=== PATIENT | male | born 1960 | race Caucasian/White ===

== ENCOUNTER 2018-07-13 08:13 | Emergency (ER) | payer SELFPAY ==
[2018-07-13] MEDS ORDERED: KETOROLAC 30 MG/ML VIAL IVP ONE (08:30)
[2018-07-13] MEDS ORDERED: 0.9 % SODIUM CHLORIDE 1,000 ML BAG IV ONE (08:31)
[2018-07-13] MEDS ORDERED: HYDROMORPHONE HCL 2 MG/ML VIAL IVP ONE (08:43)
--- NOTE | 2018-07-13 08:49 | Emergency Department Record ---
History of Present Illness - General Chief complaint: ENT Stated complaint: SORE THROAT Time Seen by Provider: 07/13/18 08:25 Source: Patient, Family Mode of Arrival: Ambulatory Limitations: No limitations - History of Present Illness Initial comments: pt has had a cold for a week and a sore throat for 2 days. it has become more severe till he feels like his throat is closing. he has a cough and congestion w drainage. he was sweating after he took tylenol. MD complaint: Difficulty swallowing, Sore throat Onset/Timin -: Days(s) Location: Throat Severity: Moderate Severity scale (1-10): 5 Quality: Aching Consistency: Constant, Intermittent, Getting worse Improves with: None Worsens with: Eating, Swallowing Associated Symptoms: Pain with swallowing - Related Data Home Medications Medication Instructions Recorded Confirmed Last Taken No Home Med [NO HOME MEDS] 07/13/18 07/13/18 Unknown Allergies Allergy/AdvReac Type Severity Reaction Status Date / Time No Known Drug Allergies Allergy Verified 07/13/18 08:22 Travel Screening - Travel/Exposure Within Last 30 Days Have you traveled within the last 30 days?: No - Travel/Exposure Within Last Year Have you traveled outside the [place] in the last year?: No - Additonal Travel Details Have you been exposed to anyone with a communicable illness?: No - Travel Symptoms Symptom Screening: None Review of Systems Reviewed: No additional complaints except as noted below Constitutional: Reports: As per HPI. Denies: Chills, Fever, Malaise, Night sweats, Weakness, Weight change Eyes: Reports: As per HPI. Denies: Eye discharge, Eye pain, Photophobia, Vision change ENT: Reports: As per HPI, Congestion, Throat pain. Denies: Dental pain, Ear pain, Epistaxis, Hearing loss Respiratory: Reports: As per HPI, Cough. Denies: Dyspnea, Hemoptysis, Stridor, Wheezes Cardiovascular: Reports: As per HPI. Denies: Arrhythmia, Chest pain, Dyspnea on exertion, Edema, Murmurs, Orthopnea, Palpitations, Paroxysmal nocturnal dyspnea, Rheumatic Fever, Syncope Endocrine: Reports: As per HPI. Denies: Fatigue, Heat or cold intolerance, Polydipsia, Polyuria Gastrointestinal: Reports: As per HPI. Denies: Abdominal pain, Constipation, Diarrhea, Hematemesis, Hematochezia, Melena, Nausea, Vomiting Genitourinary: Reports: As per HPI. Denies: Dysuria, Frequency, Hematuria, Incontinence, Retention, Testicular pain, Testicular mass, Urgency Musculoskeletal: Reports: As per HPI. Denies: Arthralgia, Back pain, Gout, Joint swelling, Myalgia, Neck pain Skin: Reports: As per HPI. Denies: Bruising, Change in color, Change in hair/nails, Lesions, Pruritus, Rash Neurological: Reports: As per HPI. Denies: Abnormal gait, Confusion, Headache, Numbness, Paresthesias, Seizure, Tingling, Tremors, Vertigo, Weakness Psychiatric: Reports: As per HPI. Denies: Anxiety, Auditory hallucinations, Depression, Homicidal thoughts, Suicidal thoughts, Visual hallucinations Hematological/Lymphatic: Reports: As per HPI. Denies: Anemia, Blood Clots, Easy bleeding, Easy bruising, Swollen glands Past Medical History - SOCIAL HISTORY Smoking Status: Never smoker Alcohol Use: None Drug Use: None - RESPIRATORY Hx Respiratory Disorders: No - CARDIOVASCULAR Hx Cardio Disorders: No - NEURO Hx Neuro Disorders: No - GI Hx GI Disorders: No - Hx Genitourinary Disorders: No - ENDOCRINE Hx Endocrine Disorders: No Hx Diabetes: No Hx Thyroid Disease: No - MUSCULOSKELETAL Hx Musculoskeletal Disorders: Yes Hx Arthritis: Yes (osteo) - PSYCH Hx Psych Problems: No - HEMATOLOGY/ONCOLOGY Hx Hematology/Oncology Disorders: No Family Medical History Any Significant Family History?: Yes Physical Exam - General General Appearance: Alert, Oriented x3, Cooperative, Mild distress - Head Head exam: Normal inspection - Eye Eye exam: Normal appearance, PERRL, EOMI Pupils: Normal accommodation - ENT ENT exam: Normal exam, Mucous membranes moist, Normal external ear exam, Normal orophraynx Ear exam: Normal external inspection. negative: External canal tenderness Nasal Exam: Normal inspection. negative: Discharge, Sinus tenderness Mouth exam: Normal external inspection, Tongue normal Teeth exam: Normal inspection. negative: Dental caries Throat exam: Tonsillar erythema. negative: Tonsillar exudate - Neck Neck exam: Normal inspection, Full ROM. negative: Tenderness - Respiratory Respiratory exam: Normal lung sounds bilaterally. negative: Respiratory distress - Cardiovascular Cardiovascular Exam: Regular rate, Normal rhythm, Normal heart sounds - GI/Abdominal GI/Abdominal exam: Soft, Normal bowel sounds. negative: Tenderness - Rectal Rectal exam: Deferred - exam: Deferred - Extremities Extremities exam: Normal inspection, Full ROM, Normal capillary refill. negative: Tenderness - Back Back exam: Reports: Normal inspection, Full ROM. Denies: Muscle spasm, Rash noted, Tenderness - Neurological Neurological exam: Alert, CN II-XII intact, Normal gait, Oriented X3 - Psychiatric Psychiatric exam: Normal affect, Normal mood - Skin Skin exam: Dry, Intact, Normal color, Warm Course Vital Signs 07/13/18 08:15 Temperature 98.3 F Pulse Rate 84 Respiratory 20 Rate Blood Pressure 143/87 Pulse Ox 99 - Reevaluation(s) Reevaluation #1: 07/13/18 10:15 ct shows epiglottitis and swelling of the r pharynx with airway narrowing 07/13/18 10:17 07/13/18 10:18 Medical Decision Making - Lab Data Result diagrams: 07/13/18 08:30 07/13/18 08:30 Disposition Disposition: Transfer Clinical Impression: Acute epiglottitis with airway obstruction Disposition: Acute Care Hospital Transfer Transfer To: [facility] Reason For Transfer: needs ent Accepting Physician: jada mcclellan and dr overton Time Discussed w/Accepting Physician: 10:13 Forms: Patient Portal Access Quality - Quality Measures Quality Measures: N/A - Blood Pressure Screening Does Patient Have Any of the Following: No Blood Pressure Classification: Pre-Hypertensive BP Reading Systolic Measurement: 143 Diastolic Measurement: 87 Screening for High Blood Pressure: < Pre-Hypertensive BP, F/U Documented > [G8950] Pre-Hypertensive Follow-up Interventions: Follow-up with rescreen every year.
[2018-07-13 08:50] LABS: ABSOLUTE NEUTROPHIL COUNT 19.76; HEMATOCRIT 43.9 % (42.0-52.0); HEMOGLOBIN 14.8 gm/dl (14.0-18.0); MEAN CELL VOLUME 90.1 fl (81-97); MEAN CORPUSCULAR HEMOGLOBIN 30.4 pg (27-33); MEAN CORPUSCULAR HGB CONC 33.7 g/dl (32-36); MEAN PLATELET VOLUME 8.5 fl (7.4-10.4); PLATELET COUNT 319 K/uL (130-400); RED BLOOD COUNT 4.87 M/uL (4.40-5.70); RED CELL DISTRIBUTION WIDTH 13.4 % (11.5-14.5)
[2018-07-13 08:56] LABS: BLOOD UREA NITROGEN 22 mg/dL (6-20)
[2018-07-13 08:57] LABS: CREATININE 1.1 mg/dL (0.7-1.2); EST GLOMERULAR FILTRATION RATE > 60 mL/min
[2018-07-13 08:59] LABS: GLUCOSE,RANDOM 117 mg/dL (74-109)
[2018-07-13] MEDS ORDERED: METHYLPREDNISOLONE PF 125MG/VIAL IVP ONE (09:53)
[2018-07-13] MEDS ORDERED: AMPICILLIN SODIUM/SULBACTAM NA 3 G in 0.9 % SODIUM CHLORIDE 100ML 100 ML IVPB ONE (10:01)
--- NOTE | 2018-07-15 17:26 | CT SCAN REPORT ---
EXAM: CT SCAN SOFT TISSUE NECK W CONTRAST HISTORY: SORE THROAT, FEVER, LEUKOCYTOSIS. TECHNIQUE: CT neck soft tissues performed with 95 mL Omnipaque-300 intravenous contrast. COMPARISON: None. FINDINGS: Epiglottis appears mildly thickened. Asymmetric soft tissue thickening of the right tonsillar and supraglottic soft tissues. No drainable soft tissue fluid collection is identified. Prevertebral soft tissues appear within normal limits. Symmetric appearance of the parotid and submandibular glands. Unremarkable CT appearance of the thyroid gland. Mildly enlarged bilateral submandibular and cervical chain lymph nodes, measuring up to 12 mm in the right submandibular region and 11 mm in the left submandibular region. Visualized upper lungs are clear. Degenerative changes noted in the cervical spine. IMPRESSION: 1. MILD SOFT TISSUE THICKENING INVOLVING THE EPIGLOTTIS AND RIGHT TONSILLAR/SUPRAGLOTTIC SOFT TISSUES. FINDINGS SUSPICIOUS FOR ADULT EPIGLOTTITIS/SUPRAGLOTTITIS. NO DRAINABLE SOFT TISSUE FLUID COLLECTION IS IDENTIFIED. 2. MILDLY ENLARGED BILATERAL SUBMANDIBULAR AND CERVICAL CHAIN LYMPH NODES, NONSPECIFIC, POSSIBLY REACTIVE. Findings discussed with ordering provider, Dr. Hart, at time of dictation. JOB NUMBER: [id number] MTDD
== END 2018-07-13 11:05 | disposition short-term general hospital (02) ==
LOC: ER 08:13
DX: J05.11 Acute epiglottitis with obstruction (principal); R13.10 Dysphagia, unspecified; R05 Cough
CPT/HCPCS: 99285 ×2; 96365; 96375; 80048; 87880; 85027; 70491; Q9967; J0295; J1885; J1170; J2930; J7030

== ENCOUNTER 2018-08-08 17:21 | Emergency (ER) | payer SELFPAY ==
--- NOTE | 2018-08-08 18:01 | Emergency Department Record ---
History of Present Illness - General Chief complaint: Head Injury Stated complaint: FALL/HIT HEAD Time Seen by Provider: 08/08/18 17:55 Source: Patient Mode of Arrival: Ambulatory Limitations: No limitations - History of Present Illness Initial comments: 58 yo male presents to ED for evaluation following a [id number] while walking out of an auto parts store just prior to arrival. Patient reports that he was carrying a bag of parts, missed a step, and fell striking his nose and face onto the ground. Patient denies LOC, denies neck pain, numbness, tingling, or weakness to the extremities. Patient denies use of anticoagulation medications. Patient denies the need for analgesia on examination. MD Complaint: Head injury Onset/Timin -: Minutes(s) Mechanism of Injury: Mechanical fall Location: Face, Frontal Loss of Consciousness: Yes Previous Trauma to this Area: No Place: Other Severity: Moderate Severity scale (1-10): 3 Quality: Aching Consistency: Constant, Intermittent Provoking factors: None known Associated Symptoms: Denies other symptoms - Related Data Allergies/Adverse reactions: Allergies Allergy/AdvReac Type Severity Reaction Status Date / Time No Known Drug Allergies Allergy Verified 08/08/18 17:33 Travel Screening - Travel/Exposure Within Last 30 Days Have you traveled within the last 30 days?: No - Travel/Exposure Within Last Year Have you traveled outside the [place] in the last year?: No - Additonal Travel Details Have you been exposed to anyone with a communicable illness?: No - Travel Symptoms Symptom Screening: None Review of Systems Constitutional: Denies: Chills, Fever, Malaise, Night sweats Eyes: Denies: Eye discharge, Eye pain ENT: Reports: Other (Nose injury). Denies: Congestion, Ear pain, Epistaxis, Hearing loss Respiratory: Denies: Cough, Dyspnea Cardiovascular: Denies: Arrhythmia, Chest pain Endocrine: Denies: Fatigue, Heat or cold intolerance Gastrointestinal: Denies: Abdominal pain, Nausea, Vomiting Genitourinary: Denies: Incontinence, Retention Musculoskeletal: Reports: Myalgia. Denies: Arthralgia, Back pain Skin: Reports: Other (Numerous abrasions). Denies: Bruising, Change in color Neurological: Reports: Headache. Denies: Abnormal gait, Confusion, Tingling, Tremors Psychiatric: Denies: Anxiety Hematological/Lymphatic: Denies: Anemia, Blood Clots Past Medical History - SOCIAL HISTORY Smoking Status: Never smoker Alcohol Use: None Drug Use: None - RESPIRATORY Hx Respiratory Disorders: No Comment:: recent epiglotitis with admission - CARDIOVASCULAR Hx Cardio Disorders: No - NEURO Hx Neuro Disorders: No - GI Hx GI Disorders: No - Hx Genitourinary Disorders: No - ENDOCRINE Hx Endocrine Disorders: No Hx Diabetes: No Hx Thyroid Disease: No - MUSCULOSKELETAL Hx Musculoskeletal Disorders: Yes Hx Arthritis: Yes (osteo) - PSYCH Hx Psych Problems: No - HEMATOLOGY/ONCOLOGY Hx Hematology/Oncology Disorders: No Family Medical History Any Significant Family History?: Yes Physical Exam - General General Appearance: Alert, Oriented x3, Cooperative, Mild distress Limitations: No limitations - Head Head exam: Other (Abrasions to the bridge of the nose, forehead on examination.) Head exam detail: Abrasion. negative: Contusion, Melgoza's sign, General tenderness, Hematoma, Laceration - Eye Eye exam: Normal appearance. negative: Conjunctival injection, Periorbital swelling, Periorbital tenderness, Scleral icterus - ENT Ear exam: negative: Auricular hematoma, Auricular trauma Nasal Exam: Other (STS over the bridge of the nose). negative: Active bleeding, Discharge, Dried blood Mouth exam: negative: Drooling, Laceration, Muffled voice, Tongue elevation Throat exam: negative: Tonsillar erythema, Tonsillomegaly, Tonsillar exudate, R peritonsillar mass, L peritonsillar mass - Neck Neck exam: Normal inspection. negative: Meningismus, Tenderness - Respiratory Respiratory exam: Normal lung sounds bilaterally. negative: Respiratory distress, Rhonchi, Stridor, Wheezes - Cardiovascular Cardiovascular Exam: Regular rate, Normal rhythm, Normal heart sounds - GI/Abdominal GI/Abdominal exam: Soft. negative: Distended, Rebound, Rigid, Tenderness - Rectal Rectal exam: Deferred - exam: Deferred - Extremities Extremities exam: Full ROM, Other (Abrasions to the left forearm/elbow, knees bilaterally. FROM of all joints without pain on examination.). negative: Calf tenderness, Pedal edema - Back Back exam: Denies: CVA tenderness (R), CVA tenderness (L) - Neurological Neurological exam: Alert, Normal gait, Oriented X3 - Psychiatric Psychiatric exam: Normal affect, Normal mood - Skin Skin exam: Abrasion, Normal color Type of lesion: abrasion Course Vital Signs 08/08/18 17:24 Temperature 98.9 F Pulse Rate 71 Respiratory 18 Rate Blood Pressure 182/85 Pulse Ox 96 - Reevaluation(s) Reevaluation #1: 08/08/18 19:17 CT Brain: No acute process CT Maxillofacial bones: Bilateral nasal bone fractures, minimally angulated to the right Patient was updated on all results and the plan of care for symptomatic treatment at home and follow-up with his PCP in 7-10 days for reassessment of his nasal bone fractures to determine if plastics consult will be necessary. Tetanus was updated prior to discharge, patient appears stable for discharge at this time. Disposition Disposition: Discharge Clinical Impression: Abrasions of multiple sites Nasal bone fractures Qualifiers: Encounter type: initial encounter Fracture type: closed Qualified Code(s): S02.2XXA - Fracture of nasal bones, initial encounter for closed fracture Disposition: Home, Self-Care Condition: (2) Stable Instructions: Nasal Fracture (ED) Additional Instructions: Return to ED if your symptoms worsen or if you have any concerns. Ice, Ibuprofen as needed. Follow-up with your family doctor in 7-10 days as directed. Forms: Patient Portal Access Time of Disposition: 19:19 Quality - Quality Measures Quality Measures: N/A - Blood Pressure Screening Does Patient Have Any of the Following: No Blood Pressure Classification: Pre-Hypertensive BP Reading Systolic Measurement: 148 Diastolic Measurement: 84 Screening for High Blood Pressure: < Pre-Hypertensive BP, F/U Documented > [G8950] Pre-Hypertensive Follow-up Interventions: Referral to alternative/primary care provider.
[2018-08-08] MEDS ORDERED: Diph,Pert(Acell),Tet Vac 0.5 ML SYR IM ONE (19:20)
--- NOTE | 2018-08-10 10:20 | CT SCAN REPORT ---
EXAM: CT OF THE HEAD WITHOUT CONTRAST HISTORY: FALL, FACIAL TRAUMA. TECHNIQUE: Standard CT imaging of the head without contrast was obtained. Comparison: None. Hand dominance: Unknown. FINDINGS: The ventricles and sulci are normal. The basal cisterns are maintained. No intracranial hemorrhage or extraaxial fluid collection is identified. No significant mass effect or midline shift. The watson white matter differentiation is maintained. The visualized paranasal sinuses and mastoid air cells are clear. There are bilateral nasal bone fractures. IMPRESSION: 1. NO EVIDENCE FOR ACUTE INTRACRANIAL ABNORMALITY. 2. BILATERAL NASAL BONE FRACTURES, DESCRIBED IN DETAIL ON MAXILLOFACIAL CT. JOB [facility]BER: [id number] [facility]
--- NOTE | 2018-08-10 10:29 | CT SCAN REPORT ---
EXAM: CT OF THE MAXILLOFACIAL WITHOUT CONTRAST HISTORY: FALL, FACIAL TRAUMA. TECHNIQUE: Standard CT imaging of the facial bones without contrast were obtained. Comparison: None. FINDINGS: There are bilateral nasal bone fractures minimally angulated to the right. No other facial bone fracture is identified. Minimal mucosal thickening in the maxillary sinuses related to layering fluid. The orbits and globes are unremarkable. IMPRESSION: BILATERAL NASAL BONE FRACTURES. NO OTHER FACIAL BONE FRACTURE. JOB NUMBER: [id number] [facility]
== END 2018-08-08 19:36 | disposition home or self-care (01) ==
LOC: ER 17:21
DX: S02.2XXA Fracture of nasal bones, initial encounter for closed fracture (principal); S50.812A Abrasion of left forearm, initial encounter; S50.811A Abrasion of right forearm, initial encounter; S80.212A Abrasion, left knee, initial encounter; S80.211A Abrasion, right knee, initial encounter; S50.312A Abrasion of left elbow, initial encounter; S50.311A Abrasion of right elbow, initial encounter; W10.9XXA Fall (on) (from) unspecified stairs and steps, initial encounter; Y92.512 Supermarket, store or market as the place of occurrence of the external cause
CPT/HCPCS: 70450; 70486; 90715; 96372; 99283; 99284